=== PATIENT | female | born 1955 | race Caucasian/White ===

== ENCOUNTER 2018-11-30 14:39 | Emergency (ER) | payer OTHER, SELFPAY ==
[2018-11-30 14:52] VITALS: BP 156/85; PULSE 62; RESP 15; TEMP 36.4; O2SAT 100
[2018-11-30 16:15] LABS: Alanine Aminotransferase 44 IU/L (9-52)
--- NOTE | 2018-11-30 16:20 | PC.NURSE ---
Pt sent here from [facility] for labs to be drawn as source of a needle stick.
[2018-11-30 17:48] LABS: HIV 1 and 2 Antibody NEGATIVE (NEGATIVE); Hep C Virus Ab w/Reflex Quant NEGATIVE s/c (NEGATIVE)
--- NOTE | 2018-11-30 19:50 | ED_ITS ---
HPI - General Adult <CRISTY Diaz - Last Filed: 11/30/18 19:50> General Chief complaint: Blood/Body fluid exposure Stated complaint: NEEDS BLOOD CHECKED, DENTIST STUCK HIS SELF WITH N Time Seen by Provider: 11/30/18 16:35 Source: patient Mode of arrival: ambulatory Limitations: no limitations History of Present Illness HPI narrative: Patient is a [age]-year-old female nonsmoker presents by herself for chief complaint of needing baseline lab work drawn. She states that her dentist stuck himself with a needle during her procedure today. She denies any history of hepatitis, HIV, but has not been tested. She does not know her last tetanus was or if she has had a hepatitis B vaccination. She was not exposed to the dentist blood. She states she just wants lab drawn. Related Data Home Medications Medication Instructions Recorded Confirmed loratadine 10 mg tablet 10 mg PO DAILY 04/20/18 09/21/18 Previous Rx's Medication Instructions Recorded metronidazole 0.75 % topical cream 1 applictn TOPICAL QDAY #45 gram 04/20/18 ciprofloxacin 0.3 %-dexamethasone 4 drop OTIC (EAR) BID #7.5 ml 09/21/18 0.1 % ear drops,suspension Allergies Allergy/AdvReac Type Severity Reaction Status Date / Time acetaminophen [From VICODIN] Allergy Intermediate Nausea/vomi Verified 11/30/18 14:52 ting hydrocodone [From VICODIN] Allergy Intermediate Nausea/vomi Verified 11/30/18 14 :52 ting oxycodone [OXYCODONE] Allergy Intermediate Nausea/dizz Verified 11/30/18 14:52 iness latex Allergy Verified 11/30/18 14:52 Milk Containing Products Allergy Verified 11/30/18 14:52 corn AdvReac Verified 11/30/18 14:52 wheat AdvReac Verified 11/30/18 14:52 Review of Systems <CRISTY Diaz - Last Filed: 11/30/18 19:50> Review of Systems GENERAL: Denies chills, fatigue, malaise, fever, sweats. HEENT: Denies sinus pain, ear pain, sore throat, difficulty swallowing, dizziness. RESPIRATORY: Denies dyspnea, cough, wheezing, hemoptysis, sputum. CARDIOVASCULAR: Denies chest pain, palpitations, orthopnea, edema, GASTROINTESTINAL: Denies nausea, vomiting, abdominal pain, diarrhea, constipation, melena. : Denies dysuria, frequency, incontinence, hematuria, urinary retention. MUSCULOSKELETAL: denies weakness, joint pain, or bony pain SKIN: See HPI NEUROLOGIC: Denies weakness, headache, numbness, change in speech, confusion, seizures, incoordination. PSYCHIATRIC: No concerning psychosocial issues. 12 point review of systems is negative except for those stated above Exam <CRISTY Diaz - Last Filed: 11/30/18 19:50> Narrative Exam Narrative: GENERAL: This is a well-nourished, well-developed patient, in no acute distress HEAD: Atraumatic. Normocephalic. No temporal or scalp tenderness. EYES: Pupils equal round and reactive. Extraocular motions intact. No scleral icterus. No injection or drainage. ENT: Nose without bleeding, purulent drainage or septal hematoma. Throat without erythema, tonsillar hypertrophy or exudate. Uvula midline. Airway patent. NECK: Trachea midline. No JVD or lymphadenopathy. Supple, nontender, no meningeal CARDIOVASCULAR: Regular rate and rhythm RESPIRATORY: No cough. No increased respiratory effort. GASTROINTESTINAL: Abdomen soft, non-tender, nondistended. No hepato-splenomegaly , or palpable masses. No guarding. EXTREMITIES: No clubbing, cyanosis, or edema. No joint tenderness, effusion, or edema noted. BACK: Nontender without deformity or crepitance. No flank tenderness. NEURO: AOx3. SKIN: No rash or erythema. Initial Vital Signs Initial Vital Signs: Vital Signs Temperature 97.6 F 11/30/18 14:52 Pulse Rate 62 11/30/18 14:52 Respiratory Rate 15 11/30/18 14:52 Blood Pressure 156/85 H 11/30/18 14:52 Pulse Oximetry 100 11/30/18 14:52 <Nohemi Courtney DO - Last Filed: 12/01/18 09:50> Initial Vital Signs Initial Vital Signs: Vital Signs Temperature 97.6 F 11/30/18 14:52 Pulse Rate 62 11/30/18 14:52 Respiratory Rate 15 11/30/18 14:52 Blood Pressure 156/85 H 11/30/18 14:52 Pulse Oximetry 100 11/30/18 14:52 Course <CRISTY Diaz - Last Filed: 11/30/18 19:50> Orders Ordered: ED Orders 11/30/18 15:59 Alanine Aminotransferase Stat HIV 1 and 2 Antibody Stat Hepatitis C Virus Antibody Stat Vital Signs - 8 hr 11/30/18 14:52 Temperature 97.6 F Pulse Rate 62 Respiratory Rate 15 Blood Pressure 156/85 H Pulse Oximetry 100 <Nohemi Courtney DO - Last Filed: 12/01/18 09:50> Orders Ordered: ED Orders 11/30/18 15:59 Alanine Aminotransferase Stat HIV 1 and 2 Antibody Stat Hepatitis C Virus Antibody Stat Vital Signs - 8 hr 11/30/18 14:52 Temperature 97.6 F Pulse Rate 62 Respiratory Rate 15 Blood Pressure 156/85 H Pulse Oximetry 100 Medical Decision Making <SAIDA Diaz-BC - Last Filed: 11/30/18 19:50> Lab Data Lab Results 11/30/18 11/30/18 Range/Units 15:59 15:59 ALT 44 (9-52) IU/L Hepatitis C Antibody Negative (NEGATIVE) s/c HIV 1&2 Antibody Negative (NEGATIVE) MDM Narrative Medical decision making narrative: Patient presented to the emergency department after her dentist was exposed to her blood via needle stick. She was not exposed to anybody else's blood. Labs were drawn per protocol. She states she will follow up with primary care provider bridge her to come back to the emergency department for any acute concerns. <Nohemi Courtney DO - Last Filed: 12/01/18 09:50> Lab Data Lab Results 11/30/18 11/30/18 Range/Units 15:59 15:59 ALT 44 (9-52) IU/L Hepatitis C Antibody Negative (NEGATIVE) s/c HIV 1&2 Antibody Negative (NEGATIVE) Discharge Plan Departure Patient Disposition: Home Clinical Impression: Needle stick injury Discharge Date/Time: 11/30/18 16:50 Interventions: ED Discharge Assessment Last Done: 11/30/18 16:50 Instructions: DI for Accidental Exposure to Body Fluids Activity Restrictions/Additional Instructions: Today your dentist was exposed to your blood during a procedure. This does not increase your chance of blood borne illness. We did draw baseline labs to evaluate for hepatitis, HIV, your liver function. Dr Radford will have access to these results. You can call Dr. Radford's office for results. Please come back to the emergency department for any acute concerns. Prescriptions: No Action loratadine 10 mg tablet 10 mg PO DAILY RF: 0 metronidazole 0.75 % cream 1 applictn Topical QDAY Qty: 45 RF: 1 ciprofloxacin-dexamethasone [Ciprodex] 0.3-0.1 % drops,suspension 4 drop otic (ear) BID Qty: 7.5 RF: 0 Referrals: Shara Radford DO [Primary Care Provider] - <Nohemi Courtney DO - Last Filed: 12/01/18 09:50> Cosign ED Attending Cosbrittanyature Attestation: I was immediately available in the department for consultation. Documentation has been reviewed. I agree with assessment and plan.
[2018-12-02 15:01] LABS: Hepatitis B Surf Ab Qualitativ Nonreactive (Nonreactive)
== END 2018-11-30 16:50 | disposition home or self-care (01) ==
PROVIDERS: Emergency Provider Nurse Practitioner Family; PCP Family Medicine
DX: Z77.21 Contact with and (suspected) exposure to potentially hazardous body fluids (principal)
CPT/HCPCS: 36415; 84460; 86703; 86706; 86803; 99282; 99283

== ENCOUNTER → 2019-06-13 09:17 | Outpatient (CLI) | payer MEDICARE, OTHER, SELFPAY ==
[2019-06-13 10:08] LABS: Hematocrit 42.6 % (36-46); Hemoglobin 14.3 g/dL (12.0-16.0); Mean Corpuscular HGB Conc 33.5 % (30-36); Mean Corpuscular Hemoglobin 29.7 PG (26-34); Mean Corpuscular Volume 88.6 fL (80-100); Platelet Count 239 X10^3/uL (150-400); Red Blood Cell Count 4.81 X10^6/uL (4.0-5.2); Red Cell Distribution Width 13.3 % (11.6-14.8); White Blood Cell Count 5.6 X10^3/uL (4.5-11.0)
[2019-06-13 10:39] LABS: Alanine Aminotransferase 26 IU/L (9-52); Albumin 4.3 g/dL (3.5-5.0); Albumin Globulin Ratio 1.3 (1.0-2.8); Alkaline Phosphatase 86 U/L (38-126); Aspartate Aminotransferase 29 IU/L (14-36); BUN Creatinine Ratio 16.3 (6-22); Bilirubin Total 0.6 mg/dL (0.2-1.3); Blood Urea Nitrogen 13 mg/dL (7-17); Carbon Dioxide 31 mmol/L (22-32); Chloride 102 mmol/L (98-107); Cholesterol 200 mg/dL (140-199); Estimated Glomerular Filt Rate > 60.0 mL/min (>60); Globulin 3.2 g/dL (1.7-4.1); Glucose 102 mg/dL (80-110); HDL Cholesterol 60 mg/dL (40-60); HEMOLYSIS < 15 (0-50); LDL Cholesterol Calculated 110 mg/dL (<100); Potassium 4.7 mmol/L (3.4-5.1); Sodium 140 mmol/L (137-145); Total Protein 7.5 g/dL (6.3-8.2); Triglycerides 152 mg/dL (35-150)
[2019-06-13 11:03] LABS: Thyroid Stimulating Hormone 1.21 uIU/mL (0.47-4.68)
[2019-06-13 11:04] LABS: Appearance Urine UA CLEAR; Bilirubin Urine UA NEGATIVE (NEGATIVE); Color Urine UA YELLOW; Glucose Urine UA NEGATIVE (Negative); Ketones Urine UA NEGATIVE (NEGATIVE); Leukocyte Esterase Urine UA NEGATIVE (NEGATIVE); Nitrite Urine UA NEGATIVE (Negative); Occult Blood Urine UA NEGATIVE (Negative); Protein Urine UA NEGATIVE (Negative); Urobilinogen Urine UA 0.2 E.U./dL (0.2)
[2019-06-13 11:09] LABS: Neutrophils Absolute Manual 3808 /uL (3000-5900); Total Cells Counted 100
[2019-06-13 11:10] LABS: RBC Morphology Normal Morphology
[2019-06-13 12:35] LABS: Vitamin D 25 Hydroxy (D3) 29.2 ng/mL (30.0-100.0)
== END ==
PROVIDERS: PCP Family Medicine; Visit Provider Family Medicine
DX: E55.9 Vitamin D deficiency, unspecified (principal); Z13.220 Encounter for screening for lipoid disorders; Z13.29 Encounter for screening for other suspected endocrine disorder; Z51.81 Encounter for therapeutic drug level monitoring
CPT/HCPCS: 36415; 80053; 80061; 81003; 82306; 84443; 85025

== ENCOUNTER → 2021-05-15 15:36 | Outpatient (CLI) | payer MEDICARE, OTHER, SELFPAY ==
[2021-05-15 16:37] LABS: Add Manual Diff / Slide Review NO; Basophils Absolute Auto 100 /uL (0-100); Basophils Percent Auto 0.9 % (0-2); Eosinophils Absolute Auto 0 /uL (0-450); Eosinophils Percent Auto 0.5 % (2-4); Hematocrit 43.2 % (36-46); Hemoglobin 14.4 g/dL (12.0-16.0); Lymphocytes Absolute Auto 2000 /uL (1100-4500); Lymphocytes Percent Auto 26.9 % (25-40); Mean Corpuscular HGB Conc 33.3 % (30-36); Mean Corpuscular Hemoglobin 29.6 PG (26-34); Mean Corpuscular Volume 88.9 fL (80-100); Monocytes Absolute Auto 400 /uL (0-900); Monocytes Percent Auto 5.1 % (3-14); Neutrophils Absolute Auto 4800 /uL (1500-7000); Neutrophils Percent Auto 66.6 % (50-75); Platelet Count 237 X10^3/uL (150-400); Red Blood Cell Count 4.85 X10^6/uL (4.0-5.2); White Blood Cell Count 7.2 X10^3/uL (4.5-11.0)
[2021-05-15 19:52] LABS: Alanine Aminotransferase 31 IU/L (<35); Albumin 4.4 g/dL (3.5-5.0); Albumin Globulin Ratio 1.4 (1.0-2.8); Alkaline Phosphatase 89 U/L (38-126); Aspartate Aminotransferase 39 IU/L (14-36); BUN Creatinine Ratio 26.4 (6-22); Bilirubin Total 0.5 mg/dL (0.2-1.3); Blood Urea Nitrogen 19 mg/dL (7-17); Carbon Dioxide 30 mmol/L (22-32); Chloride 103 mmol/L (98-107); Cholesterol 225 mg/dL (140-199); Estimated Glomerular Filt Rate > 60.0 mL/min (>60); Globulin 3.1 g/dL (1.7-4.1); Glucose 90 mg/dL (80-110); HDL Cholesterol 74 mg/dL (40-60); HEMOLYSIS < 15 (0-50); LDL Cholesterol Calculated 130 mg/dL (<100); Potassium 3.9 mmol/L (3.4-5.1); Sodium 139 mmol/L (137-145); Total Protein 7.5 g/dL (6.3-8.2); Triglycerides 104 mg/dL (35-150)
[2021-05-15 20:17] LABS: TSH w/ Reflex to FT4 0.87 uIU/mL (0.47-4.68)
== END ==
PROVIDERS: PCP Family Medicine; Referring Provider Family Medicine; Visit Provider Family Medicine
DX: Z13.220 Encounter for screening for lipoid disorders (principal); Z13.29 Encounter for screening for other suspected endocrine disorder; Z13.228 Encounter for screening for other metabolic disorders; E78.5 Hyperlipidemia, unspecified; I10 Essential (primary) hypertension
CPT/HCPCS: 36415; 80053; 80061; 84443; 85025

== ENCOUNTER → 2022-11-07 08:46 | Outpatient (CLI) | payer MEDICARE, OTHER, SELFPAY ==
--- NOTE | 2022-11-07 08:50 | DI.RAD.S_ITS ---
PROCEDURE: XR KNEE RT 3V INDICATIONS: medial pain x 6 months. no inj TECHNIQUE: 3 views of the knee were acquired. COMPARISON: None. FINDINGS: Bones: No fractures or dislocations. Mild joint space narrowing in the medial compartment. Small osteophytes at the medial and patellar compartments. No suspicious bony lesions. Soft tissues: Small joint effusion. No suspicious soft tissue calcifications. 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 MRI could be considered for further evaluation if clinically indicated. Dictated by: Gonzales Malhotra M.D. on 11/07/2022 at 12:46 Approved by: Gonzales Malhotra M.D. on 11/07/2022 at 12:47
== END ==
PROVIDERS: PCP Family Medicine; Referring Provider Family Medicine; Visit Provider Family Medicine
DX: M17.11 Unilateral primary osteoarthritis, right knee (principal); M25.561 Pain in right knee
CPT/HCPCS: 73562

== ENCOUNTER 2023-01-02 09:36 | Day surgery (SDC) | payer MEDICARE, OTHER, SELFPAY ==
--- NOTE | 2023-01-02 | PATH_ITS ---
[facility] Accession Number: [id number] No. of containers..02 Tissue . 01 Material submitted: . PART A: hepatic flexure - HEPATIC FLEXURE POLYPS X 3 PART B: colon - TRANSVERSE COLON POLYP . 01 Diagnosis: A. Hepatic Flexure Polyps x3, Biopsies: Tubular adenomas. . B. Transverse Colon, Polyp, Biopsy: Tubular adenoma. MRV 01/07/2023 1401 Local . 01 Electronically signed: . Hoda Ludwig MD, Pathologist NPI- [id number] . 01 Gross description: . Part A: HEPATIC FLEXURE POLYPS X 3: Received in formalin are multiple fragment(s) of barrera, soft tissue measuring 2.0 x 0.5 x 0.1 cm in aggregate submitted entirely in 1 cassette(s) Part B: TRANSVERSE COLON POLYP: Received in formalin are 2 fragment(s) of barrera, soft tissue measuring 0.4 x 0.2 x 0.2 cm to 0.3 x 0.2 x 0.1 cm submitted entirely in 1 cassette(s) /CPE 01/03/2023 0833 Local . 01 Pathologist provided ICD-10: D12.3 . 01 CPT . 351474, [id number] Specimen Comment: A courtesy copy of this report has been sent to [facility] Pathology Performed at: 01 [facility] [address] [place] [address], [place], [place] [id number] MD Brooks Lauren MD Phone: [phone]
[2023-01-02] MEDS: LACTATED RINGERS 1,000 ML 100 ML IV (10:07)
[2023-01-02 10:11] VITALS: BP 143/81; PULSE 70; RESP 16; TEMP 36.8; O2SAT 98; BMI 31.8
--- NOTE | 2023-01-02 10:51 | PM.HP.1 ---
History of Present Illness History of Present Illness Chief complaint: Dx Colonoscopy Narrative: Ms. Olivares presents today for screening colonoscopy. She is had a history of colon polyps. She is not sure exactly when her last colonoscopy was, she thinks it was about 4 years ago and possibly did not have any polyps at that time. She has had at least 3 colonoscopies in the past. She does have a family history of colon cancer her father was diagnosed with colon cancer in his 70s. Her sister had a small bowel tumor and was having symptoms of pain in her abdomen. Ms. Olivares herself is not having any concerning symptoms no bleeding or pain changes in her bowel habits. Patient History Medical History (Updated 01/02/23 @ 11:31 by Nidhi Villagomez MD) Acne rosacea Allergic conjunctivitis of right eye Borderline hyperlipidemia Borderline hypertension Family & Social History Tobacco & Substance use: Smoking Status Never smoker alcohol intake never Substance Use Type does not use Meds Home Medications and Allergies Home Medications Medication Instructions Recorded Confirmed Type metronidazole 0.75 % topical cream 1 applic topical QDAY #45 grams 11/05/22 01/02/23 Rx sodium,potassium,mag sulfates 17.5 See Rx Instructions PO .COMPLEX 12/10/22 Rx gram-3.13 gram-1.6 gram oral soln #354 mL (Suprep Bowel Prep Kit) Allergies Allergy/AdvReac Type Severity Reaction Status Date / Time acetaminophen [From VICODIN] Allergy Intermediate Nausea/vomi Verified 01/02/23 10:08 ting hydrocodone [From VICODIN] Allergy Intermediate Nausea/vomi Verified 01/02/23 10:08 ting oxycodone [OXYCODONE] Allergy Intermediate Nausea/dizz Verified 01/02/23 10:08 iness latex Allergy Verified 01/02/23 10:08 Milk Containing Products Allergy Verified 01/02/23 10:08 corn AdvReac Verified 01/02/23 10:08 wheat AdvReac Verified 01/02/23 10:08 Exam Vital Signs (past 8 hours): - 01/02/23 10:11 Temperature 98.3 F Pulse Rate 70 Respiratory Rate 16 Blood Pressure 143/81 H Pulse Oximetry 98 Oxygen Delivery Method Room Air Oxygen Delivery Method Room Air Const General: cooperative, healthy appearing and comfortable Orientation: alert, awake and oriented x3 HENMT Head: normal to inspection Resp Effort & Inspection: normal respiratory effort and able to speak in complete sentences Cardio Pulses: radial pulses present GI Palpation: soft and No tender Assessment & Plan Assessment and plan (1) History of colon polyps: Status: Acute (2) Family history of colon cancer: Status: Acute (3) Colon cancer screening: Status: Acute Assessment & Plan narrative: I discussed the risks benefits and alternatives of a screening colonoscopy with Ms. Olivares including but not limited to perforation of the colon and incomplete exam. She understands the risks benefits and alternatives and would like proceed. Time Spent With Patient Critical Care time: I spent a total of [] minutes of critical care time on this patient's care today; this time is exclusive of procedural time.
[2023-01-02 12:28] VITALS: BP 108/69; PULSE 88; RESP 20; TEMP 36.4; O2SAT 96
[2023-01-02 12:32] VITALS: PULSE 87; RESP 16; O2SAT 96
[2023-01-02 12:33] VITALS: BP 104/69
[2023-01-02 12:39] VITALS: BP 109/72; PULSE 81; RESP 18; O2SAT 97
[2023-01-02 12:43] VITALS: BP 112/76; PULSE 72; RESP 13; TEMP 36.4; O2SAT 98
--- NOTE | 2023-01-02 13:16 | PM.OP.COLON ---
Operative Date/Time/Diagnoses Pre-op diagnosis: Screening for colon cancer, high-risk due to family history and history of polyps Post-op diagnosis: same Procedure Notes Procedure in detail: Patient was taken to the endoscopy suite and placed in a left lateral decubitus position. A time-out was performed. With the help of Dr. Nate villar an anesthesiologist conscious sedation was performed. A digital rectal exam was performed and there was a right lateral external hemorrhoid that was small. Digital rectal exam revealed no masses or strictures. The colonoscope was introduced into the anal canal and advanced through to the cecum. She had scattered diverticula throughout her sigmoid colon. Abdominal pressure was required to reach the cecum and photograph was obtained of the appendiceal orifice. The prep was good [employer] bowel prep 2. The withdrawal time in total was 26 minutes. Upon withdrawal at the hepatic flexure there were 3 small polyps that were identified in succession. Each 1 was biopsied with the forceps and removed. Fourth small polyp was seen in the transverse colon and removed again with the biopsy forceps. The remainder of the withdrawal was unremarkable the scope was retroflexed and photograph was taken. There may have been some small amount of bleeding from hemorrhoid seen as the scope was taken out. Otherwise there were no complications and the patient tolerated the procedure well and went in good condition to the postoperative care unit Findings: divertiulosis and polyp(s) Specimen(s): other (1. Hepatic flexure polyps x3 2. Transverse colon polyp) Impression: A total of 3 small polyps were removed. There were scattered diverticula throughout the sigmoid colon Post-procedure Plan for aftercare: Follow-up will be in 3-5 years depending on the pathology of the polyps
== END 2023-01-02 13:17 | disposition home or self-care (01) ==
PROVIDERS: PCP Family Medicine; Referring Provider Surgery; Visit Provider Surgery
PROC: 0DJD8ZZ Inspection of Lower Intestinal Tract, Via Natural or Artificial Opening Endoscopic (ICD-10-PCS; CPT 45378; principal; 2023-01-02 11:00)
DX: Z12.11 Encounter for screening for malignant neoplasm of colon (principal); Z86.010 Personal history of colon polyps; K57.30 Diverticulosis of large intestine without perforation or abscess without bleeding; K64.8 Other hemorrhoids; D12.3 Benign neoplasm of transverse colon
CPT/HCPCS: 45380; J2250; J3010

== ENCOUNTER → 2024-07-26 09:02 | Outpatient (CLI) | payer MEDICARE, OTHER, SELFPAY ==
--- NOTE | 2024-07-26 09:04 | DI.MG.S_ITS ---
BILATERAL DIGITAL SCREENING MAMMOGRAM 3D/2D WITH CAD: 07/26/2024 CLINICAL: Routine screening. Baseline exam. Family history breast cancer. No prior exams were available for comparison. There are scattered areas of fibroglandular density (category b / 25%-50% glandular tissue). Current study was also evaluated with a Computer Aided Detection (CAD) system. There is a benign intramammary node in the left breast. No significant masses, calcifications, or other findings are seen in either breast. IMPRESSION: BENIGN There is no mammographic evidence of malignancy. A 1 year screening mammogram is recommended. Based on the Tyrer Cuzick model (a risk assessment model) the patient's lifetime risk is 10.8% and her 10 year risk is 6.9%. According to the ACR, ACS, and NCCN guidelines, an annual breast MRI exam along with mammogram is recommended if the patient's lifetime risk is 20% or greater. This exam was interpreted at Station ID: [id number]. NOTE: For mammograms, a report in lay terms will be sent to the patient. Approximately 15% of breast malignancies will not be visualized mammographically. In the management of a palpable breast mass, a negative mammogram must not discourage biopsy of a clinically suspicious lesion. Electronically Signed By: Gonzales [email or web address]/[email or web address]:07/26/2024 13:02:46 letter sent: Normal Exam ACR BI-RADS Category 2: Benign
--- NOTE | 2024-07-26 09:04 | DI.RAD.S_ITS ---
PROCEDURE: XR DEXA AXIAL SKELETON INDICATIONS: screening for osteoporosis COMPARISON: None. FINDINGS: Lumbar Spine: Bone mineral density 1.085 g/cm2, T score 0.3, normal. Left Hip: Bone mineral density is 0.806 g/cm2, T score -1.1, osteopenia. Left Femoral Neck: Bone mineral density is 0.669 g/cm2, T score -1.6, osteopenia. Right Hip: Bone mineral density is 0.782 g/cm2, T score -1.3, osteopenia. Right Femoral Neck: Bone mineral density 0.687 g/cm2, T score -1.5, osteopenia. Fracture Risk Calculation (when applicable): 10-year fracture risk of a major osteoporotic fracture 9.5 percent and of a hip fracture 1.3 percent. (T score greater or equal to -1.0 to: NORMAL) (T score from -1.1 to -2.4: OSTEOPENIA) (T score less than or equal to -2.5: OSTEOPOROSIS) IMPRESSION: Osteopenia Follow-up guidelines as follows: Osteoporosis: Consider a repeat DEXA and Vertebral Fracture Assessment (VFA) exam in 2 years or sooner if medically necessary, to reassess this patient's status. Osteopenia: Consider a repeat DEXA in 2-3 years to reassess this patient's status, or if there is a new clinical indication. Normal: Consider a repeat DEXA in 5 years or sooner, or if there is a new clinical indication. All treatment decisions require clinical judgment and consideration of individual patient factors, including patient preferences, comorbidities, previous drug use, risk factors not captured in the FRAX model (e.g., frailty, falls, vitamin D deficiency, increased bone turnover, interval significant decline in bone density ) and possible under- or over-estimation of fracture risk by FRAX. In addition, the NOF Guide recommends that FDA-approved medical therapies be considered in postmenopausal women and men age >= 50 years with a: * Hip or vertebral (clinical or morphometric) fracture * T-score of <=-2.5 at the spine or hip * Ten-year fracture probability by FRAX of >= 3% for hip fracture or >=20% for major osteoporotic fracture. People with diagnosed cases of osteoporosis or at high risk for fracture should have regular bone mineral density tests. For patients eligible for Medicare, routine testing is allowed once every 2 years. The testing frequency can be increased to one year for patients who have rapidly progressing disease, those who are receiving or discontinuing medical therapy to restore bone mass, or have additional risk factors. Approved by: Armen Leyva M.D. on 07/26/2024 at 18:54
[2024-07-26 11:14] LABS: Alanine Aminotransferase 21 IU/L (<35); Albumin Globulin Ratio 1.6 (1.0-2.8); Alkaline Phosphatase 85 U/L (38-126); Aspartate Aminotransferase 33 IU/L (14-36); BUN Creatinine Ratio 15.6 (6-22); Bilirubin Total 0.7 mg/dL (0.2-1.3); Blood Urea Nitrogen 10 mg/dL (7-17); Calcium 9.7 mg/dL (8.4-10.2); Carbon Dioxide 29 mmol/L (22-32); Chloride 103 mmol/L (98-107); Cholesterol 186 mg/dL (140-199); Estimated Glomerular Filt Rate > 60 mL/min (>60); Globulin 2.5 g/dL (1.7-4.1); Glucose 102 mg/dL (80-110); HDL Cholesterol 78 mg/dL (40-60); HEMOLYSIS < 15 (0-50); LDL Cholesterol Calculated 91 mg/dL (<100); Potassium 4.2 mmol/L (3.4-5.1); Sodium 137 mmol/L (137-145); Total Protein 6.5 g/dL (6.3-8.2); Triglycerides 86 mg/dL (35-150)
== END ==
PROVIDERS: PCP Family Medicine; Referring Provider Family Medicine; Visit Provider Family Medicine
DX: Z12.31 Encounter for screening mammogram for malignant neoplasm of breast; Z13.820 Encounter for screening for osteoporosis; Z80.3 Family history of malignant neoplasm of breast; M85.89 Other specified disorders of bone density and structure, multiple sites; E78.5 Hyperlipidemia, unspecified
CPT/HCPCS: 36415; 77063; 77067; 77080; 80053; 80061

== ENCOUNTER → 2025-09-01 14:52 | Outpatient (ROUT) | payer MEDICARE, OTHER, SELFPAY ==
[2025-09-01 15:33] LABS: Alanine Aminotransferase 23 IU/L (<35); Albumin 4.4 g/dL (3.5-5.0); Albumin Globulin Ratio 1.6 (1.0-2.8); Alkaline Phosphatase 75 U/L (38-126); Blood Urea Nitrogen 14 mg/dL (7-17); Calcium 9.7 mg/dL (8.4-10.2); Carbon Dioxide 28 mmol/L (22-32); Chloride 102 mmol/L (98-107); Cholesterol 207 mg/dL (140-199); Estimated Glomerular Filt Rate > 60 mL/min (>60); Globulin 2.8 g/dL (1.7-4.1); Glucose 84 mg/dL (70-99); HDL Cholesterol 88 mg/dL (40-60); HEMOLYSIS 15 (0-50); Potassium 4.3 mmol/L (3.4-5.1); Sodium 136 mmol/L (137-145); Total Protein 7.2 g/dL (6.3-8.2); Triglycerides 93 mg/dL (35-150)
== END ==
PROVIDERS: PCP Family Medicine; Visit Provider Family Medicine
DX: Z00.00 Encounter for general adult medical examination without abnormal findings (principal); L71.9 Rosacea, unspecified; M85.80 Other specified disorders of bone density and structure, unspecified site; E78.5 Hyperlipidemia, unspecified
CPT/HCPCS: 36415; 80053; 80061

== ENCOUNTER → 2025-09-06 12:16 | Outpatient (CLI) | payer MEDICARE, OTHER, SELFPAY ==
--- NOTE | 2025-09-06 12:17 | DI.RAD.S_ITS ---
PROCEDURE: XR HIP W PEL IF DONE RT 2V
== END ==
PROVIDERS: PCP Family Medicine; Referring Provider Family Medicine; Visit Provider Family Medicine
DX: M25.551 Pain in right hip (principal)
CPT/HCPCS: 73502

== ENCOUNTER → 2025-10-25 11:06 | Outpatient (CLI) | payer MEDICARE, OTHER, SELFPAY ==
--- NOTE | 2025-10-25 11:08 | DI.MG.S_ITS ---
MM screening mammo BI: 10/25/2025. BI-RADS: 1 CLINICAL: 70-year old female for bilateral screening mammogram. Tyrer-Cuzick lifetime risk of 10.2%. Current reported family history of breast cancer: sister. PRIOR EXAMS 07/26/2024. MAMMOGRAPHY TECHNIQUE: 2D and 3D (tomosynthesis) digital mammographic views obtained, with additional images as needed for full coverage. Current study was also evaluated with a Computer Aided Detection (CAD) system. DENSITY B. There are scattered areas of fibroglandular density. MAMMOGRAPHY FINDINGS Bilateral: No suspicious mass, asymmetry, microcalcification, or other abnormality seen. IMPRESSION: * No evidence of malignancy. RECOMMENDATIONS Bilateral * Annual screening mammography. OVERALL ASSESSMENT CATEGORY BI-RADS-1: Negative. The [employer] recommends annual screening mammography beginning at age 40 for women with average risk of breast cancer. ELECTRONICALLY SIGNED: Lashawn Acosta M.D. on 10/25/2025 at 12:49:37 PM PT Interpreting Station ID: [id number]
== END ==
LOC: MAMMO 11:07
PROVIDERS: PCP Family Medicine; Referring Provider Family Medicine; Visit Provider Family Medicine
DX: Z12.31 Encounter for screening mammogram for malignant neoplasm of breast (principal); Z80.3 Family history of malignant neoplasm of breast
CPT/HCPCS: 77063; 77067